=== PATIENT | male | born 1975 | race Caucasian/White ===

== ENCOUNTER 2022-07-26 06:47 | Day surgery (SDC) | payer OTHER, SELFPAY ==
[2022-06-04 10:57] VITALS: BMI 29.3
[2022-07-16 14:05] VITALS: BMI 27.3
--- NOTE | 2022-07-26 07:09 | WPDANESEPPF ---
Anes - Initial Pre Proc Eval Procedure: Operation Date: 07/26/22 10:30 Proposed Procedures p Screening Colonoscopy - Duke Laughlin MD Date/Time: 07/26/22 07:09 Surgeon: Duke Laughlin MD Pre Op Diagnosis: History of colon polyps Patient Data Age: 47 Gender: M Height: 1.73 m Weight: 81.5 kg Allergies Allergy/AdvReac Type Severity Reaction Status Date / Time No Known Allergies Allergy Verified 07/26/22 09:33 Home Medications Medication Instructions Recorded Confirmed Type atorvastatin 20 mg tablet 20 mg PO DAILY 03/31/22 07/26/22 History sodium,potassium,mag sulfates 17.5 See Rx Instructions PO .COMPLEX 06/04/22 07/26/22 Rx gram-3.13 gram-1.6 gram oral soln #354 mL (Suprep Bowel Prep Kit) Patient hx anesthesia problems: none Family hx anesthesia problems: none Results Review: All pre-operative results and documents have been reviewed as part of the pre-operative evaluation. [facility] Past Medical History Medical History (Updated 07/26/22 @ 07:09 by Miles Salcedo DO) Hyperlipidemia Family History Family History Mother Lung cancer Social History Social History Smoking status: Former smoker Tobacco type: cigarettes Smokeless tobacco user: chewing tobacco Smoking end date: 02/17/22 Alcohol intake: current Alcohol use details: social Substance use: never Substance use type: does not use Living arrangements: with family Spiritual care concerns: No Anes - Eval Final PreProcedure Day of Procedure 07/26/22 07:09 Patient weight: overweight Heart: regular rate and rhythm Lungs: clear to auscultation Airway: Mallampati scale class II Neurological: alert and oriented Last oral intake: >/= 8 hours ASA classification: II Emergent: no Anesthetic plan: proceed Anesthesia type and monitoring: general GIVS and standard monitoring Results Review: All pre-operative results and documents have been reviewed as part of the pre-operative evaluation. Informed Consent: The patient's anesthetic plan and its attendant risks and benefits were discussed with the patient/family/POA. Questions were solicited and answers provided to the satisfaction of the patient/family/POA.
[2022-07-26 09:15] VITALS: BP 134/86; PULSE 64; RESP 20; TEMP 36.7; O2SAT 100
[2022-07-26] MEDS: LACTATED RINGERS 1,000 ML 150 ML IV CONT (09:37)
--- NOTE | 2022-07-26 09:52 | PM.HPGS ---
History of Present Illness History of Present Illness Consent: Risks, benefits, and alternatives have been discussed and questions answered. Patient agrees to proceed with procedure. Chief complaint: History of colon polyps Narrative: Emile Watson is a 47 year old male Presents for screening colonoscopy. Patient's current weight appetite and bowel movements are normal. Patient denies abdominal pain. Patient has had no bleeding. Family history is significant his mother has had colon polyps. Patient has a history of colon polyps removed in 2006. Colonoscopy several years later 2009 was unremarkable. He has not had follow-up since that time patient presents today for screening colonoscopy. Review of Systems Review of Systems: Review of systems noncontributory. [facility] Past Medical History Medical History (Updated 07/26/22 @ 09:54 by Duke Laughlin MD) Hyperlipidemia Family History Family History Mother Lung cancer Social History Social History Smoking status: Former smoker Tobacco type: cigarettes Smokeless tobacco user: chewing tobacco Smoking end date: 02/17/22 Alcohol intake: current Alcohol use details: social Substance use: never Substance use type: does not use Living arrangements: with family Spiritual care concerns: No Meds Home Medications and Allergies Home Medications Medication Instructions Recorded Confirmed Type atorvastatin 20 mg tablet 20 mg PO DAILY 03/31/22 07/26/22 History sodium,potassium,mag sulfates 17.5 See Rx Instructions PO .COMPLEX 06/04/22 07/26/22 Rx gram-3.13 gram-1.6 gram oral soln #354 mL (Suprep Bowel Prep Kit) Allergies Allergy/AdvReac Type Severity Reaction Status Date / Time No Known Allergies Allergy Verified 07/26/22 09:33 Vital Signs Vital Signs - 24 hr 07/26/22 09:15 Temperature 98.0 F Pulse Rate 64 Respiratory Rate 20 Blood Pressure 134/86 Pulse Oximetry 100 Oxygen Delivery Room Air Exam Narrative: Physical exam reveals patient to be alert. Vital signs stable. HEENT exam is unremarkable. Patient is anicteric. Lungs are clear to auscultation and percussion. Heart is without murmur or extra sounds. Abdomen bowel sounds are present soft nontender with no organomegaly. Digital external rectal exam is normal. Assessment and Plan Assessment and plan (1) History of colon polyps: Code(s): Z86.010 - Personal history of colonic polyps Status: Acute Assessment and Plan: Patient has a distant history of colon polyps most recently 2006. He has not had a colonoscopy since 2009. Patient presents today for neoplasia screening colonoscopy. (2) Family history of colonic polyps: Code(s): Z83.71 - Family history of colonic polyps Status: Acute Assessment and Plan: Patient's mother has had colon polyps previously. Surveillance colonoscopy intermittently at 5 year intervals is advised.
[2022-07-26 10:42] VITALS: BP 111/74; PULSE 81; RESP 17; O2SAT 96
[2022-07-26 10:52] VITALS: BP 106/77; PULSE 65; RESP 18; O2SAT 97
[2022-07-26 11:02] VITALS: BP 109/79; PULSE 65; RESP 18; O2SAT 97
--- NOTE | 2022-07-26 11:24 | WPDANESPN ---
Anes - Prog Note Post-Op Date/Time: 07/26/22 11:24 Cardiovascular status: normal Respiratory status: normal Airway patency: baseline Mental status: baseline Post-Op hydration status: normal Vital Signs: Last Vital Signs Temp 36.7 C 07/26/22 09:15 Pulse 65 07/26/22 11:02 Resp 18 07/26/22 11:02 BP 109/79 07/26/22 11:02 Pulse Ox 97 07/26/22 11:02 O2 Del Method Room Air 07/26/22 11:02 Pain Score (VAS): 0 I/O: Intake & Output 07/25/22 07/26/22 07/26/22 23:59 07:59 15:59 Intake Total 200 Balance 200 Post-procedural complaints: none Patient Feedback: Patient satisfied with anesthetic care. Other Findings: Patient vital signs back to baseline. Patient denies nausea and vomiting. Patient's pain under control. Patient OK for discharge.
== END 2022-07-26 11:35 | disposition home or self-care (01) ==
PROVIDERS: PCP Family Medicine; Visit Provider Internal Medicine Gastroenterology
PROC: 0DJD8ZZ Inspection of Lower Intestinal Tract, Via Natural or Artificial Opening Endoscopic (ICD-10-PCS; CPT 45378; principal; 2022-07-26 10:30)
DX: Z86.010 Personal history of colon polyps (principal)
CPT/HCPCS: 45385

== ENCOUNTER 2022-07-26 07:00 | Outpatient (NON) | payer OTHER, SELFPAY | END 2022-07-27 08:05 | disposition home or self-care (01) | PROVIDERS: PCP Family Medicine; Visit Provider Internal Medicine Gastroenterology | DX: D12.5 Benign neoplasm of sigmoid colon (principal); Z86.010 Personal history of colon polyps | CPT/HCPCS: 88305 ==